=== PATIENT | male | born 1990 | race Caucasian/White ===

== ENCOUNTER 2023-12-10 22:54 | Emergency (ER) | payer OTHER ==
[~2023-12-10] VITALS: Ht 182.9 cm; Wt 104.5 kg
[2023-12-10 23:07] VITALS: TEMP 98.3; O2SAT 98
[2023-12-11 01:45] VITALS: BP 146/82; PULSE 115; RESP 18
[2023-12-11] MEDS: KETOROLAC 30MG/ML VIAL IM ONE (01:45)
[2023-12-11] MEDS: CYCLOBENZAPRINE 10MG TABLET PO ONE (01:45)
[2023-12-11] MEDS ORDERED: CYCL10TA21 MT (02:01)
== END 2023-12-11 03:04 | disposition home or self-care (01) ==
LOC: ER 22:54
DX: M79.10 Myalgia, unspecified site (principal); M54.2 Cervicalgia; M25.512 Pain in left shoulder; V49.49XA Driver injured in collision with other motor vehicles in traffic accident, initial encounter; Y93.89 Activity, other specified; Y92.89 Other specified places as the place of occurrence of the external cause; Y99.8 Other external cause status
CPT/HCPCS: 99283; 96372; J1885; Z7610